=== PATIENT | female | born 1965 | race Caucasian/White ===

== ENCOUNTER → 2016-06-14 | Outpatient (CLI) | payer OTHER ==
[~2016-06-14] MED LIST: ASCA500 PO; CEPH-571 PO; CEPH500C2 PO; CHOLTAB3 PO; CLON1TAB3 PO; FERR1TAB23 PO; FLUO20CA20 PO; FLUO40CA8 PO; FLX/5 PO; GABA-113 PO; IBUP-1050 PO; IRON INFUSION IV; LAMO100T16 PO; LEVO25TA5 PO; LPT10 PO; MULT-506 PO; OXYC-609 PO; PRAZ1CAP10 PO; PROP20TA4 PO; PRT/20 PO; RISP0.258 PO; SULF800T23 PO; ZOLP10TA6 PO
--- NOTE | 2016-06-14 18:52 | DIAGNOSTIC IMAGING REPORT ---
BONE SCAN 3 PHASE LIMITED HISTORY: LEFT KNEE PAIN , S/P TKA 2013 TECHNIQUE: Immediately and 3 hours following the intravenous administration of 26 mCi of technetium 99 M MDP, 3 phase bone scan of the knees was performed. COMPARISON STUDY: Bone scan 07/17/2015. Bilateral knee radiograph 11/16/2014. FINDINGS: No abnormal retention uptake within the knees on the flow sequences. Focal mild radiotracer uptake within the medial compartment of the right knee consistent with degenerative change. There is also persistent radiotracer uptake at the left tibial periprosthetic location on the blood pool and delayed sequences. This remains unchanged. IMPRESSION: No change in the radiotracer uptake adjacent to the tibial component of the left knee compared to the 07/17/2015 examination. This raises the possibility of loosening. Electronically signed by: Brandon Powers M.D. 06/14/2016 6:50 PM Dictated Date/Time: 06/14/2016 6:46 PM
== END | disposition home or self-care (01) ==
LOC: C.NUCL 14:21
PROVIDERS: ATTEND Orthopaedic Surgery
DX: T84.84XA Pain due to internal orthopedic prosthetic devices, implants and grafts, initial encounter (principal); Z96.652 Presence of left artificial knee joint; Y83.1 Surgical operation with implant of artificial internal device as the cause of abnormal reaction of the patient, or of later complication, without mention of misadventure at the time of the procedure

== ENCOUNTER 2016-11-20 23:28 | Emergency (ER) | payer OTHER ==
[~2016-11-20] VITALS: Ht 162.6 cm; Wt 91.3 kg
[~2016-11-20 23:28] MED LIST changes: -CEPH-571 PO; -CEPH500C2 PO; -FERR1TAB23 PO; -FLUO20CA20 PO; -FLX/5 PO; -IRON INFUSION IV; -LAMO100T16 PO; -LEVO25TA5 PO; -LPT10 PO; -OXYC-609 PO; -PRAZ1CAP10 PO; -PROP20TA4 PO; -RISP0.258 PO; -SULF800T23 PO
[2016-11-20 23:34] VITALS: TEMP 36.8; Ht 162.6 cm; Wt 91.3 kg
[2016-11-20] MEDS ORDERED: SODIUM CHLORIDE 0.9% 1000ML 1,000 ML IV STA (23:35)
[2016-11-20] MEDS ORDERED: CEFAZOLIN SOD 1000MG/55 ML D5W IV STA (23:35)
[2016-11-20] MEDS ORDERED: XYLOCAINE 1%/SOD BICARB 20 ML VIAL INFIL ONE (23:45)
[2016-11-20] MEDS ORDERED: DIPHTHERIA/TETANUS/PERTUSSIS 0.5 ML SYR/VIAL IM. ONE (23:45)
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
[2016-11-21] MEDS ORDERED: LEVO25TA5 PO (00:04)
[2016-11-21] MEDS ORDERED: LPT10 PO (00:04)
[2016-11-21] MEDS ORDERED: OXYC-609 PO (00:06)
[2016-11-21] MEDS ORDERED: FLX/5 PO (00:06)
[2016-11-21 00:07] LABS: BASO % 0.5 %; BASO ABS # 0.04 K/uL (0-0.2); COMPLETE YES; EOS % 1.1 %; HEMATOCRIT 39.4 % (37-47); IG% 0.3 %; LYMPH % 31.9 %; LYMPH ABS # 2.53 K/uL (1.2-3.4); MEAN CELL VOLUME 82.3 fL (80-100); MEAN CORPUSCULAR HEMOGLOBIN 28.8 pg (25-34); MEAN PLATELET VOLUME 10.1 fL (7.4-10.4); MONO % 7.3 %; NEUT % 58.9 %; PLATELET COUNT 308 K/uL (130-400); RED BLOOD COUNT 4.79 M/uL (4.2-5.4); WHITE BLOOD COUNT 7.92 K/uL (4.8-10.8)
[2016-11-21] MEDS ORDERED: IRON INFUSION IV (00:07)
[2016-11-21 00:17] LABS: PARTIAL THROMBOPLASTIN RATIO 0.9; PROTHROMBIN TIME (PATIENT) 10.3 SECONDS (9.0-12.0)
[2016-11-21 00:24] LABS: ALT/SGPT 29 U/L (12-78); AST/SGOT 14 U/L (15-37); BLOOD UREA NITROGEN 10 mg/dl (7-18); BUN/CREATININE RATIO 10.9 (10-20); CALCIUM 8.3 mg/dl (8.5-10.1); CARBON DIOXIDE 21 mmol/L (21-32); CHLORIDE 111 mmol/L (98-107); CREATININE 0.92 mg/dl (0.60-1.20); GLUCOSE 86 mg/dl (70-99); POTASSIUM 3.8 mmol/L (3.5-5.1); SODIUM 143 mmol/L (136-145)
[2016-11-21 00:27] LABS: ALKALINE PHOSPHATASE 53 U/L (45-117)
[2016-11-21] MEDS ORDERED: CEPHALEXIN 500MG HOME PACK 1 EA BTL PO ONE (00:30)
[2016-11-21] MEDS ORDERED: OXYCODONE IR HOME PACK PO ONE (00:30)
[2016-11-21] MEDS ORDERED: CEPH500C2 PO (00:33)
[2016-11-21] MEDS ORDERED: OXYCODONE HCL IR 5 MG TAB (IMMEDIATE RELEASE) PO STA (00:33)
[2016-11-21 00:49] LABS: ACETAMINOPHEN < 2 ug/ml (10-30)
[2016-11-21 00:50] LABS: PREG INTERNAL NEGATIVE QC NEG CLEAR BACKGROUND; PREG INTERNAL POSITIVE QC POS CONTROL LINE
[2016-11-21 01:01] VITALS: BP 119/91; PULSE 88; O2SAT 100
== END 2016-11-21 01:06 | disposition home or self-care (01) ==
LOC: EDBD 23:28 → C.EDB 23:29
DX: S51.812A Laceration without foreign body of left forearm, initial encounter (principal); S66.822A Laceration of other specified muscles, fascia and tendons at wrist and hand level, left hand, initial encounter; W45.8XXA Other foreign body or object entering through skin, initial encounter; Y92.003 Bedroom of unspecified non-institutional (private) residence as the place of occurrence of the external cause; Y93.89 Activity, other specified; D64.9 Anemia, unspecified; M79.7 Fibromyalgia; Z87.891 Personal history of nicotine dependence; Z79.899 Other long term (current) drug therapy; Z23 Encounter for immunization

== ENCOUNTER → 2016-11-23 | Outpatient (CLI) | payer OTHER ==
[~2016-11-23] MED LIST changes: -ASCA500 PO; +CEPH-571 PO; +CEPH500C2 PO; -CHOLTAB3 PO; +FERR1TAB23 PO; +FLUO20CA20 PO; +FLX/5 PO; -IBUP-1050 PO; +IRON INFUSION IV; +LAMO100T16 PO; +LEVO25TA5 PO; +LPT10 PO; +OXYC-609 PO; +PRAZ1CAP10 PO; +PROP20TA4 PO; -PRT/20 PO; +RISP0.258 PO; +SULF800T23 PO; -ZOLP10TA6 PO
== END | disposition home or self-care (01) ==
LOC: C.CPL 13:53
PROVIDERS: ATTEND Orthopaedic Surgery
DX: S51.812A Laceration without foreign body of left forearm, initial encounter (principal); X58.XXXA Exposure to other specified factors, initial encounter

== ENCOUNTER 2016-12-02 15:08 | Inpatient (IN) | payer OTHER ==
[~2016-12-02] VITALS: Ht 160 cm; Wt 90.9 kg
[~2016-12-02 15:08] MED LIST changes: -CEPH-571 PO; -FERR1TAB23 PO; -FLUO20CA20 PO; -GABA-113 PO; -LAMO100T16 PO; -PRAZ1CAP10 PO; -PROP20TA4 PO; -RISP0.258 PO; -SULF800T23 PO
[2016-12-02] MEDS ORDERED: CEPH-571 PO (15:47)
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
[2016-12-02 17:11] LABS: BASO % 0.4 %; BASO ABS # 0.03 K/uL (0-0.2); COMPLETE YES; EOS % 1.2 %; HEMATOCRIT 37.4 % (37-47); IG% 0.2 %; LYMPH % 22.1 %; MEAN CELL VOLUME 86.4 fL (80-100); MEAN CORPUSCULAR HEMOGLOBIN 28.6 pg (25-34); MEAN CORPUSCULAR HGB CONC 33.2 g/dl (32-36); MONO % 6.5 %; NEUT % 69.6 %; PLATELET COUNT 342 K/uL (130-400); RED BLOOD COUNT 4.33 M/uL (4.2-5.4); WHITE BLOOD COUNT 8.14 K/uL (4.8-10.8)
[2016-12-02 17:32] LABS: ALT/SGPT 33 U/L (12-78); AST/SGOT 31 U/L (15-37); BLOOD UREA NITROGEN 7 mg/dl (7-18); BUN/CREATININE RATIO 7.6 (10-20); CALCIUM 9.3 mg/dl (8.5-10.1); CARBON DIOXIDE 30 mmol/L (21-32); CHLORIDE 104 mmol/L (98-107); CREATININE 0.97 mg/dl (0.60-1.20); GLUCOSE 87 mg/dl (70-99); POTASSIUM 3.9 mmol/L (3.5-5.1); SODIUM 140 mmol/L (136-145)
[2016-12-02 17:40] LABS: ACETAMINOPHEN < 2 ug/ml (10-30)
[2016-12-02 17:43] LABS: ALKALINE PHOSPHATASE 54 U/L (45-117)
[2016-12-02 18:06] LABS: URINE APPEARANCE CLEAR (CLEAR); URINE BILIRUBIN NEG (NEG); URINE COLOR YELLOW; URINE NITRITE NEG (NEG); URINE SPECIFIC GRAVITY 1.022 (1.000-1.030); UROBILINOGEN NEG (NEG); ZZUR CULT IF INDIC CLEAN CATCH NO
[2016-12-02 18:16] LABS: MANUAL MICROSCOPIC REQUIRED? NO; REVIEW REQ? NO
[2016-12-02] MEDS ORDERED: CLON1TAB3 PO ×2 (18:16)
[2016-12-02 18:46] LABS: BENZODIAZEPINE, URINE NEG (NEG); COCAINE,URINE NEG (NEG); PHENCYCLIDINE, URINE NEG (NEG)
[2016-12-02] MEDS ORDERED: SULFAMETHOXAZOLE/TRIMETHOPRIM DS 800/160MG TAB PO STA (19:10)
[2016-12-02] MEDS ORDERED: NURSING VERBAL MED ORDER ONE ×2 (20:45→23:15)
[2016-12-02 20:47] VITALS: O2SAT 96
[2016-12-02] MEDS ORDERED: ALUMINUM/MAGNESIUM SUSP 30 ML UDC PO PRN (21:00)
[2016-12-02] MEDS ORDERED: ACETAMINOPHEN 325 MG TAB PO PRN (21:00)
[2016-12-02] MEDS ORDERED: hydrOXYzine HCL 25 MG TAB PO PRN ×2 (21:00)
[2016-12-02] MEDS ORDERED: SODIUM CHLORIDE 0.65% NA SOLN 45 ML (OCEAN) PRN (21:00)
[2016-12-02] MEDS ORDERED: MAGNESIUM HYDROXIDE SUSP 30 ML UDC PO PRN (21:00)
[2016-12-02] MEDS ORDERED: BISMUTH SUBSALICYLATE PER ML OMNICELL CHARGE PO PRN (21:00)
[2016-12-02] MEDS: ATORVASTATIN 10 MG TAB PO SCH ×2 (21:36→21:43)
[2016-12-02] MEDS: CLONAZEPAM 1 MG TAB PO SCH ×2 (21:36→21:43)
[2016-12-02] MEDS: OXYCODONE HCL IR 5 MG TAB (IMMEDIATE RELEASE) PO PRN (21:39)
[2016-12-02] MEDS: CEPHALEXIN MONOHYDRATE 500 MG CAP PO SCH (22:15)
[2016-12-02 23:30] VITALS: BP 131/84; PULSE 78; TEMP 36.5; BMI 35.5
[2016-12-03 06:36] VITALS: BP_SYST 107; BP_SYST 109; BP_DIAS 65; BP_DIAS 74; PULSE 73; TEMP 37
[2016-12-03 06:41] VITALS: Ht 160 cm; Wt 90.9 kg
[2016-12-03] MEDS: LEVOTHYROXINE 75 MCG TAB PO SCH (08:43)
[2016-12-03] MEDS: CEPHALEXIN MONOHYDRATE 500 MG CAP PO SCH ×4 (08:44→22:00)
[2016-12-03] MEDS: MULTIVITAMIN TAB PO SCH (08:44)
[2016-12-03] MEDS: CYCLOBENZAPRINE HCL 5 MG TAB PO PRN ×2 (08:50→22:20)
[2016-12-03] MEDS: OXYCODONE HCL IR 5 MG TAB (IMMEDIATE RELEASE) PO PRN ×3 (08:57→22:02)
[2016-12-03] MEDS ORDERED: CLONAZEPAM 0.5 MG TAB PO SCH (09:00)
[2016-12-03] MEDS ORDERED: FLUOXETINE HCL 20 MG CAP PO SCH (09:00)
[2016-12-03] MEDS ORDERED: PROP20TA4 PO (10:17)
[2016-12-03] MEDS ORDERED: RISP0.258 PO (10:18)
[2016-12-03] MEDS ORDERED: LAMO100T16 PO (10:19)
[2016-12-03] MEDS ORDERED: PRAZ1CAP10 PO (10:20)
[2016-12-03] MEDS ORDERED: GABA-113 PO (10:21)
[2016-12-03] MEDS ORDERED: FERR1TAB23 PO (10:22)
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
[2016-12-03 12:50] VITALS: BP 104/66; PULSE 55
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
[2016-12-03] MEDS: GABAPENTIN 300 MG CAP PO SCH ×2 (14:12→22:00)
[2016-12-03] MEDS ORDERED: NURSING VERBAL MED ORDER ONE (20:30)
[2016-12-03] MEDS ORDERED: HALOPERIDOL LACTATE 5 MG/ML 1 ML VIAL IM PRN (20:45)
--- NOTE | 2016-12-03 21:18 | Progress Note ---
Progress Note Date of Service Dec 03, 2016. Progress Note Visit consult on Yoselin Bowles a 51-year-old female seen at the request of Dr. Jeannette spence regarding a left dorsal forearm laceration. Currently the patient sustained a laceration over dorsal left forearm on November 20. She was seen in the [facility] ER. She was seen and evaluated with exploration of the wound and loose closure. She was then referred to our clinic at . She subsequently had exploration and repair of her left forearm laceration. She is placed in a dorsal splint. She was having worsening agitation and difficulty with her family members and was admitted to [address] [place] [address] psychiatric unit. Orthopedics was consulted to assess left forearm. Reportedly the patient had become agitated and removed her splint and thrown it while here during this admission. Patient was also reportedly manipulating her dorsal incision and potentially trying to remove some of her sutures. When questioned regarding her behavior the patient admitted to removing her splint and manipulating her sutures. Past medical and surgical history: Major depressive disorder, GERD, dorsal forearm laceration left Allergies no known drug allergies Medications: Reviewed and in the chart Social history: Tobacco use, alcohol use, no reported drug use. . Lives with family. Physical exam: Patient was examined while sitting in the activity room the psychiatric unit. Patient was visibly upset and easily agitated. I introduced myself and explained my purpose of examination to the patient. She did consent to my examination. Left dorsal forearm splint had been removed by the patient. Her on the wrapping was disheveled. The dorsal sutured laceration was exposed to air. The wound edges were well coapted. Obvious erythema surrounding the wound edges with mild excoriations consistent with wound manipulation. No purulence or discharge is noted. No proximal streaking or redness was noted. No phlebitis or ropiness was palpated. She had mild discomfort with gentle passive range of motion of the thumb and digits. She had moderate weakness with extension of the thumb and second digit. Radial pulse 2 out of 4. Skin warm, dry, intact. No rashes or other lesions beside the well coapted laceration. Impression: Left forearm laceration status post repair Recommendation: After discussion with the patient, she agreed to reapplying her splint herself. She refused to have nursing staff reapply the splint. I offered to reapply the splint she also refused. Patient stated that she wanted to be released to home. I explained that she could easily reopen her wound and had become infected if she continued to manipulate the wound. She agreed to obtain the splint in her own best interest. Patient is to maintain the splint and follow-up in clinic as previously arranged. Ice and elevation of the left forearm. Keep splint intact clean and dry. Thank you for the opportunity consult care of this patient. Sincerely, Vishal Aldana D.O.
--- NOTE | 2016-12-03 21:40 | Psychiatric Progress Notes ---
Psychiatric Progress Note Date of Service Dec 03, 2016. Notes case reviewed with correctional facility nurse psychiatrist Dr. Soto as I was examining physician for the day and reverse unit operator fisherman. On assessment earlier today she did not report pain and was ambulating without difficulty. Neurontin (which she reportedly was not taking at home but was prescribed) was restarted to address neuropathy. At the time of her meeting with MD she had represented generally using Oxycodone 10 mg 2-3 times a day, "sometimes not all". TID was determined to be most appropriate dosing pending additional documentation of indication for opiate as not generally prescribed for fibromyalgia. call or contact centre manager MD available for additional dosing if more objective evidence of pain or for rx of withdrawal. Patient had rescinded PILAR for who would have been able to locate/count missing pills that she reports to have at home. Staff attempts to follow doctor 's orders outlining appropriate limits on use of controlled substances have been met with grossly inappropriate behavior as documented in nursing notes. Ortho had been consulted early in day (prior to removal of splint by patient in anger) to address infection and sutures. Ortho consult reviewed this pm, no additional med recs. Patient submitted 72 hour notice to withdraw from treatment. She is not stable for discharge at this time and will be reassessed by Dr. oSto in the am who will also encourage family involvement in safety planning prior to discharge.
[2016-12-03] MEDS ORDERED: FERROUS SULFATE 325 MG TAB PO SCH (22:00)
[2016-12-03] MEDS: ATORVASTATIN 10 MG TAB PO SCH (22:00)
[2016-12-03] MEDS ORDERED: PROPRANOLOL HCL 20 MG TAB PO SCH (22:00)
[2016-12-03] MEDS ORDERED: RISPERIDONE 0.5 MG TAB PO SCH (22:00)
[2016-12-03] MEDS ORDERED: PRAZOSIN HCL 1 MG CAP PO SCH (22:00)
[2016-12-03] MEDS: CLONAZEPAM 0.5 MG TAB PO PRN (22:18)
[2016-12-03] MEDS: HALOPERIDOL 5 MG TAB PO PRN (22:18)
[2016-12-04 06:36] VITALS: BP_SYST 109; BP_SYST 119; BP_DIAS 64; BP_DIAS 83; PULSE 71; PULSE 75; TEMP 37
--- NOTE | 2016-12-04 07:55 | Psychiatric Progress Notes ---
Progress Note Date of Service Dec 04, 2016. Interval History Yoselin Bowles is a 51-year-old female who currently lives in [place] with her , has a history of mood disorder NOS, chronic opiate and benzodiazepine use, and was admitted on a 201 voluntary commitment after she presented to the ED, having recently been seen in ED after self inflicted lac to her left arm requiring tendon repair surgery. She submitted a 72 hour notice to withdraw from treatment. Chief Complaint "I'm tired of being lied to and crap". Subjective Patient was seen & assessed interval progress reviewed with nursing. Staff report she has been agitated and grossly inappropriate since admission, yelling , threatening and throwing things. She removed the splint from her arm laceration and threw it, used the TV remote to hit the nurses' station window, and has been yelling and swearing at staff. Security had to be called to the unit multiple times. She was seen by orthopedics (although she initially refused to see Dr. Aldana, but later agreed), who has no further medication recommendations. She had signed an PILAR for her on admission, but then rescinded it and would not allow staff to contact him. She later signed another one. She refused her HS meds (gabapentin, Keflex, Lipitor). She requested a prn for sleep and accepted Haldol 5mg. She told staff she wanted meds that would "fuck me up, cause that's what I want. That's what I'm here for anyway, drugs!" Staff met with her one on one last night and she had many complaints (that staff went through her purse and counted her pills). She admitted she has issues with "rage" and that she "flipped out" and cannot control her behavior. She has received multiples prns since admission yesterday: clonazepam, hydroxyzine, haloperidol, cyclobenzaprine, and oxycodone. Her VS have been normal and stable. She told staff this morning that she will not take any medications except for Roxicodone, Flexeril, and Klonopin. On assessment today , the patient was seen in her room, where she was sitting in the darkened room drinking soda. She refused to answer questions about why she was here in the hospital, repeatedly launching into angry tirades, with many complaints about her medications (that staff went through her medications in her purse on admission), frequently swearing and raising her voice. Numerous attempts were made to redirect her away from her complaints and all of the things that she says she is not here to receive treatment for, and to engage her in a discussion of what she is here to receive treatment for. After many attempts, she did say that she was here "for mental stuff, anger." She then immediately turn to topic back to her numerous complaints and stated she would not discuss this further and told her demands for more pain medication and more benzodiazepines were met. She continued to escalate, yelling and swearing at this physician, and when asked to please calm down and then have a respectful discussion, said "get the hell out." She continued to yell angrily as this physician left the room. Sleep Information Total Hours of Sleep: 5.50 Meal Information Percent of Breakfast Consumed: 25 Percent of Lunch Consumed: 50 Percent of Dinner Consumed: 100 Mental Status Exam During interview pt is: alert and oriented, uncooperative, other (angry, swearing, grossly inappropriate behavior) Appearance: appropriately dressed, disheveled Eye contact is: fair Motor behavior is: no abnormal motor movements Speech: loud (angry tone, frequent swearing and derogatory statements about staff) Affect: irritable Mood is: irritable, angry Thought process: perseveration (on wanting more controlled substances) Thought content: reality based without delusions Intelligence estimated to be: consistent with level of education Insight: limited Judgement: limited Patient refused to engage in the interview or answer questions about suicidality , homicidality, or psychosis Impression 51 yo female with a history of depression, PTSD, and chronic benzo and oxycodone use who presented with irritability, impulsive outbursts, and recent self harm requiring surgical intervention (cut her arm deep enough to sever a tendon and require surgical repair). Although she denies SI, she is at significant risk of self-harm given recent behaviors and access to controlled substances. She was resistant to attempts to safety plan. Symptoms are consistent with her previous diagnoses of depression and PTSD though differential includes substance induced mood disorder, bipolar II disorder and borderline personality disorder. Plan (1) Depression on admission: The patient is admitted to [facility] ([facility] unit) on q 15 min checks (behavioral with suicide precautions) for safety. The patient will participate in group, recreational and milieu therapies and will be offered additional individual and family sessions as clinically appropriate. As no current evidence of ky and ongoing low mood/anxiety recommend titration of Prozac to 60 mg, previously failed SNRI. Reviewed that an adjunctive mood stabilizer would be recommended given predominantly irritable presentation and previously recommended by outpatient provider. Reviewed that Seroquel may assist sleep and could be used as prn for anxiety which are patient's main complaints. She declines and remains focussed on Klonopin, angry that med changes are being recommended. LM for Dr. 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 12/04 - Reviewed outpatient psychiatric records. Patient diagnosed with recurrent depression, severe without psychosis, URIAH, and PTSD. At her last appointment , she was focused on her Klonopin and refused to discuss anything else, wanting a higher dose, and refusing to follow taper instructions. She claimed she never took the opiates prescribed for her knee pain, and said she'd turned the prescription in to her pharmacy. She was angry and accusatory. She had quit going to therapy saying she could not afford it. She canceled her next appointment 11/25, then no showed for her 12/02 appointment. She does have a therapy appointment scheduled with Juanis Carr on 12/27/16 at 2pm. She is supposed to be taking risperidone 0.25mg qhs, prazosin 1-2mg qhs, fluoxetine 40mg qam, propranolol 20mg 1-2 times daily, lamotrigine 100mg qhs, and clonazepam 0.5mg qam and 2mg qhs (tapering by reducing by 0.5mg q 2 months). She admitted on admission that she was not taking any of her medications other than clonazepam. - Continue fluoxetine which was increased to 60mg daily on admission. Continue gabapentin 300mg tid for mood, anxiety and would also cover possible benzo withdrawal (which she refused last night). She is now refusing both of these, and states she will refuse all medications except for Flexeril, Klonopin, and oxycodone. - Suspect Noti II component, with borderline and/or antisocial characteristics. (2) PTSD (post-traumatic stress disorder) patient reports mainly intrussive thoughts due to rumination rather than traumatic reexperiencing, occasional nightmares and apparently doesn't desire trials of propranolol or prazosin. 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 Klonopin was ordered as prescribed on admission to prevent withdrawal. Will switch to prn dosing which more closely matches home schedule at a lower total daily dose of 2 mg. PDMP queried and report printed for chart. 12/04 - Agree with tapering off clonazepam due to many risks associated with nuclear security officer use and concurrent use of opiate pain meds. She is clearly drug seeking, with grossly inappropriate and manipulative/threatening behavior here. Dose has been decreased per outpatient plan by 0.5mg daily. Will need f/u with Dr. Stein, and Dr. Beck left a message with him to coordinate care. Will need to confirm home med pill count as there is concern for abuse (UDS negative for benzos and her bottle filled on 11/27/16 for a 24 day supply was empty on admission); staff to ask to bring in remaining pills. (4) Chronic prescription opiate use PILAR for [place] [facility] PDMP queried monitor for withdrawal if has been using at doses higher than prescribed--would initiate clonidine protocol. No evidence at this time. 12/04 - Reviewed records and PDMP - - filled oxycodone 10mg #120 on 11/30/16 from [facility] in [place]. Will need to coordinate care due to concerns for risk of self harm, possible misuse of medications, drug-drug interactions, etc. (5) Laceration continue antibiotic dual therapy for 10 days as recommended by ED consult orthopedics as missed appt today for surgical f/u taper wrap instead of metal clips 12/04 - Appreciate ortho recs. Continue splint and keep wound clean and dry. She had been manipulating the wound yesterday, and need to continue to monitor her for self inflicted injury and infection. F/u in their outpatient clinic. Septra DS was not started on admission, but was ordered today to complete a 7 day course. (6) Chronic pain Get records from [facility], as indication for chronic opiates unclear, and risk of abuse/misuse/drug-drug interactions and self injury are high. Discharge / Aftercare Planning Primary Care Physician: Name: Preston Gutierrez Therapist: Name: Fozia Wahl @ [facility] Date of Appointment: Dec 27, 2016 Visit Code E&M Code: 40145 Inventory Assets Strengths: long standing relationship with an outpatient provider, supportive family Risk Factors Assessment : Yes Health problems: Yes Mental Health Diagnoses: Yes Substance use disorders: Yes (though patient denies, combo of benzo and opiate is concerning) Previous attempt: Yes Family history of suicide: No Previous psychiatric stay: No Protective Factors Assessment : Yes Employed: No Data Vital Signs Last 24 Hrs: Date Time Temp Pulse Resp B/P (MAP) Pulse Ox O2 Delivery O2 Flow Rate FiO2 12/04/16 06:36 37.0 71 16 109/64 75 119/83 Meds Administered Last 24 Hrs: Meds Administered (Past 24Hrs) Medications (Trade) Dose Ordered Sig/Oxana Route Start Time Stop Time Status Last Admin Dose Admin Trimethoprim/ Sulfamethoxazole (Septra Ds 800/ 160MG Tab) 1 tab NOW STAT PO 12/02/16 19:10 12/02/16 19:11 DC 12/02/16 19:29 1 TAB Hydroxyzine HCl (Vistaril Tab) 50 mg HSZ PRN PO 12/02/16 21:00 01/01/17 20:59 12/03/16 00:18 50 MG Atorvastatin Calcium (Lipitor Tab) 10 mg HS PO 12/02/16 21:00 01/01/17 20:59 12/02/16 21:36 10 MG Clonazepam (Klonopin Tab) 0.5 mg QAM PO 12/03/16 09:00 12/03/16 14:01 DC 12/03/16 08:45 0.5 MG Clonazepam (Klonopin Tab) 2 mg HS PO 12/02/16 21:00 12/03/16 14:01 DC 12/02/16 21:36 2 MG Cyclobenzaprine HCl (Flexeril Tab) 5 mg QID PRN PO 12/02/16 21:00 01/01/17 20:59 12/03/16 22:20 5 MG Fluoxetine HCl (Prozac Cap) 40 mg QAM PO 12/03/16 09:00 12/03/16 14:01 DC 12/03/16 08:44 40 MG Levothyroxine Sodium (Synthroid Tab) 37.5 mcg DAILYBB PO 12/03/16 07:00 01/02/17 06:59 12/03/16 08:43 37.5 MCG Multivitamins (Multivitamin Tab) 1 tab QAM PO 12/03/16 09:00 01/02/17 08:59 12/03/16 08:44 1 TAB Oxycodone HCl (Roxicodone Immediate Rel Tab) 10 mg QID PRN PO 12/02/16 21:00 12/03/16 14:01 DC 12/03/16 08:57 10 MG Cephalexin Monohydrate (Keflex Cap) 500 mg QID PO 12/02/16 22:00 12/12/16 21:59 12/03/16 17:06 500 MG Gabapentin (Neurontin Cap) 300 mg TID PO 12/03/16 14:00 01/02/17 13:59 12/03/16 14:12 300 MG Clonazepam (Klonopin Tab) 0.5 mg Q6 PRN PO 12/03/16 18:00 01/02/17 08:59 12/03/16 22:18 0.5 MG Oxycodone HCl (Roxicodone Immediate Rel Tab) 10 mg TID PRN PO 12/03/16 14:00 12/16/16 20:59 12/03/16 22:02 10 MG Haloperidol (Haldol Tab) 5 mg Q4H PRN PO 12/03/16 20:45 01/02/17 20:44 12/03/16 22:18 5 MG Problem Qualifiers (1) Depression: Depression Type: major depressive disorder Major depression recurrence: recurrent Active/Remission status: currently active Major depression episode severity: severe Psychotic features: without psychotic features Qualified Codes: F33.2 - Major depressive disorder, recurrent severe without psychotic features
[2016-12-04] MEDS: OXYCODONE HCL IR 5 MG TAB (IMMEDIATE RELEASE) PO PRN ×3 (10:55→22:48)
[2016-12-04] MEDS: MULTIVITAMIN TAB PO SCH (10:58)
[2016-12-04] MEDS: LEVOTHYROXINE 75 MCG TAB PO SCH (10:58)
[2016-12-04] MEDS: CEPHALEXIN MONOHYDRATE 500 MG CAP PO SCH ×4 (10:58→21:50)
[2016-12-04] MEDS: GABAPENTIN 300 MG CAP PO SCH ×3 (10:59→21:50)
[2016-12-04] MEDS: FLUOXETINE HCL 20 MG CAP PO SCH (10:59)
[2016-12-04] MEDS: CLONAZEPAM 0.5 MG TAB PO PRN ×2 (11:01→18:39)
[2016-12-04] MEDS ORDERED: SULF800T23 PO (11:03)
[2016-12-04] MEDS ORDERED: SULFAMETHOXAZOLE/TRIMETHOPRIM DS 800/160MG TAB PO ONE (11:05)
[2016-12-04] MEDS: CYCLOBENZAPRINE HCL 5 MG TAB PO PRN ×2 (11:47→22:49)
[2016-12-04] MEDS: ATORVASTATIN 10 MG TAB PO SCH (21:50)
[2016-12-04] MEDS: SULFAMETHOXAZOLE/TRIMETHOPRIM DS 800/160MG TAB PO SCH (21:51)
[2016-12-04] MEDS: HALOPERIDOL 5 MG TAB PO PRN (22:49)
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
[2016-12-05] MEDS: CEPHALEXIN MONOHYDRATE 500 MG CAP PO SCH ×4 (09:14→21:32)
[2016-12-05] MEDS: CLONAZEPAM 0.5 MG TAB PO PRN ×3 (09:14→23:00)
[2016-12-05] MEDS: FLUOXETINE HCL 20 MG CAP PO SCH (09:15)
[2016-12-05] MEDS: SULFAMETHOXAZOLE/TRIMETHOPRIM DS 800/160MG TAB PO SCH ×2 (09:15→21:30)
[2016-12-05] MEDS: GABAPENTIN 300 MG CAP PO SCH ×3 (09:15→21:31)
[2016-12-05] MEDS: MULTIVITAMIN TAB PO SCH (09:15)
[2016-12-05] MEDS: LEVOTHYROXINE 75 MCG TAB PO SCH (09:15)
[2016-12-05] MEDS: OXYCODONE HCL IR 5 MG TAB (IMMEDIATE RELEASE) PO PRN ×4 (09:16→23:02)
[2016-12-05 09:18] VITALS: BP 132/85; PULSE 86; TEMP 36.6
[2016-12-05] MEDS: CYCLOBENZAPRINE HCL 5 MG TAB PO PRN ×3 (10:41→23:03)
[2016-12-05] MEDS ORDERED: NURSING VERBAL MED ORDER ONE (20:30)
[2016-12-05] MEDS: BACITRACIN OINT 15 GM TUBE EXT PRN (21:30)
[2016-12-05] MEDS: ATORVASTATIN 10 MG TAB PO SCH (21:31)
[2016-12-05] MEDS: HALOPERIDOL 5 MG TAB PO PRN (23:00)
[2016-12-05 23:54] LABS: COD UR NEGATIVE NG/ML (CUTOFF=50); HYDROCOD UR NEGATIVE NG/ML (CUTOFF=50); HYDROMOR UR NEGATIVE NG/ML (CUTOFF=50); MORPHINE UR NEGATIVE NG/ML (CUTOFF=50); NORHYDROCODONE CONF UR NEGATIVE NG/ML (CUTOFF=50); OXYMORPH UR 2120 NG/ML (CUTOFF=50)
[2016-12-06 06:27] VITALS: BP_SYST 110; BP_SYST 125; BP_DIAS 71; BP_DIAS 85; PULSE 67; PULSE 79; TEMP 36.9
[2016-12-06] MEDS: LEVOTHYROXINE 75 MCG TAB PO SCH (08:39)
[2016-12-06] MEDS: MULTIVITAMIN TAB PO SCH (08:40)
[2016-12-06] MEDS: GABAPENTIN 300 MG CAP PO SCH ×3 (08:40→22:44)
[2016-12-06] MEDS: FLUOXETINE HCL 20 MG CAP PO SCH (08:40)
[2016-12-06] MEDS: SULFAMETHOXAZOLE/TRIMETHOPRIM DS 800/160MG TAB PO SCH ×2 (08:40→22:44)
[2016-12-06] MEDS: CEPHALEXIN MONOHYDRATE 500 MG CAP PO SCH ×4 (08:40→22:43)
[2016-12-06] MEDS: CYCLOBENZAPRINE HCL 5 MG TAB PO PRN ×4 (08:48→22:42)
[2016-12-06] MEDS: OXYCODONE HCL IR 5 MG TAB (IMMEDIATE RELEASE) PO PRN ×4 (08:49→23:52)
[2016-12-06] MEDS: CLONAZEPAM 0.5 MG TAB PO PRN ×3 (09:52→23:52)
--- NOTE | 2016-12-06 12:07 | Psychiatric Progress Notes ---
Progress Note Date of Service Dec 06, 2016. Interval History Yoselin Bowles is a 51-year-old female who currently lives in [place] with her , has a history of mood disorder NOS, chronic opiate and benzodiazepine use, and was admitted on a 201 voluntary commitment after she presented to the ED, having recently been seen in ED after self inflicted lac to her left arm requiring tendon repair surgery. She submitted a 72 hour notice to withdraw from treatment. Chief Complaint "Good, good". Subjective Patient was seen & assessed interval progress reviewed with Treatment Team. Staff report she has been going to groups and participating. She had a meeting with her this morning. She says it went well and they talked about safety issues (getting the guns secured, having her secure medications, and possibly involving her daughter as well). She also talked about her anger problems and is considering outpatient anger management. She is trying to "talk about the things that have been bottled up" while here, which she says have been helpful. She says she hasn't talked to anybody about these things in the past. She is going to commit to more frequent therapy, and is going to join the [facility] so she can use the pool for exercise. Mood is improved from admission, but she continues to be easily overwhelmed, although has been able to remain in better behavioral control since Sat. She denies SI and feels safe here. She denies opiate withdrawal symptoms. She admits that she has never really processed her anger issues with her therapist, and says there are "a lot of things I never talked to anyone about." She feels less apprehensive now about bringing up some of these topics. She decided to rescind her 72 hour notice and stay "for at least a couple more days, I really need the help." She says she "hates to be out of control, it's the worst thing ever, but at the time I can't stop it." She says she "takes it out on everyone around me, it's not fair." Sleep Information Total Hours of Sleep: 5.50 Meal Information Percent of Breakfast Consumed: 100 Percent of Lunch Consumed: 100 Percent of Dinner Consumed: 50 Mental Status Exam During interview pt is: alert and oriented, cooperative Appearance: appropriately dressed, appropriately groomed, other (Left arm in splint/bandage) Eye contact is: good Motor behavior is: steady gait & station, no abnormal motor movements Speech: normal in rate, rhythm & volume Affect: depressed, other (appropriate and reactive) Mood is: other ("getting better") Thought process: goal directed Thought content: reality based without delusions Suicidal thought are: denied Homicidal thoughts are: denied Hallucinations: denies auditory, denies visual Cognition: memory grossly intact, attention grossly intact, language grossly intact Intelligence estimated to be: consistent with level of education Insight: fair Judgement: fair Impression 51 yo female with a history of depression, PTSD, and chronic benzo and oxycodone use who presented with irritability, impulsive outbursts, and recent self harm requiring surgical intervention (cut her arm deep enough to sever a tendon and require surgical repair). Symptoms are consistent with her previous diagnoses of depression and PTSD though differential includes substance induced mood disorder, bipolar II disorder and borderline personality disorder. For the first two days after admission, she was uncooperative with assessments and refused to engage in treatment or take medication for her mood, anxiety, and irritability. She was angry and oppositional with staff, refused to involve her in treatment or allow staff to speak with him (rescinded all ROIs for family and outpatient providers). She refused to even discuss the symptoms and self injurious behavior that led to admission, and was focused only on pain medications. She remains at high risk for self harm if her risk factors are not addressed, so is not yet appropriate for discharge. She had submitted a 72 hour notice, but agreed to rescind it during her family meeting and engage in treatment so that we can address presenting symptoms with a plan including medications and therapy, ensure outpatient follow up, involve or other family to elicit their concerns about her safety at home and involve them in her discharge planning, and ensure she won't have access to large amounts of pills given the risk for OD. Would also need to coordinate care with her outpatient providers, specifically psychiatry and pain management, given concerns about her opiate and benzodiazepine use. She has been more calm and engaged in treatment since 12/05. She is also willing to take medications that have been prescribed for mood and irritability. Plan (1) Depression on admission: The patient is admitted to [facility] ([facility]) on q 15 min checks (behavioral with suicide precautions) for safety. The patient will participate in group, recreational and milieu therapies and will be offered additional individual and family sessions as clinically appropriate. As no current evidence of ky and ongoing low mood/anxiety recommend titration of Prozac to 60 mg, previously failed SNRI. Reviewed that an adjunctive mood stabilizer would be recommended given predominantly irritable presentation and previously recommended by outpatient provider. Reviewed that Seroquel may assist sleep and could be used as prn for anxiety which are patient's main complaints. She declines and remains focussed on Klonopin, angry that med changes are being recommended. LM for Dr. 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 12/04 - Reviewed outpatient psychiatric records. Patient diagnosed with recurrent depression, severe without psychosis, URIAH, and PTSD. At her last appointment , she was focused on her Klonopin and refused to discuss anything else, wanting a higher dose, and refusing to follow taper instructions. She claimed she never took the opiates prescribed for her knee pain, and said she'd turned the prescription in to her pharmacy. She was angry and accusatory. She had quit going to therapy saying she could not afford it. She canceled her next appointment 11/25, then no showed for her 12/02 appointment. She does have a therapy appointment scheduled with Juanis Carr on 12/27/16 at 2pm. She is supposed to be taking risperidone 0.25mg qhs, prazosin 1-2mg qhs, fluoxetine 40mg qam, propranolol 20mg 1-2 times daily, lamotrigine 100mg qhs, and clonazepam 0.5mg qam and 2mg qhs (tapering by reducing by 0.5mg q 2 months). She admitted on admission that she was not taking any of her medications other than clonazepam. - Continue fluoxetine which was increased to 60mg daily on admission. Continue gabapentin 300mg tid for mood, anxiety and would also cover possible benzo withdrawal (which she refused last night). She is now refusing both of these, and states she will refuse all medications except for Flexeril, Klonopin, and oxycodone. - Suspect [place] II component, with borderline and/or antisocial characteristics. 12/05 - Patient much more calm and cooperative today, willing to take fluoxetine and gabapentin to target mood, anxiety, and irritability, and willing to attend participate in groups and therapy. - Staff to arrange family meeting with for tomorrow. - Will need to coordinate care with outpatient psychiatric provider, Dr. Stein. Has therapy with Juanis Carr scheduled for later this month. (2) PTSD (post-traumatic stress disorder) patient reports mainly intrusive thoughts due to rumination rather than traumatic reexperiencing, occasional nightmares and apparently doesn't desire trials of propranolol or prazosin. (3) long-term prescription benzodiazepine use reviewed that I would recommend Klonopin taper during hospitalization and confirming pill counts. Klonopin was ordered as prescribed on admission to prevent withdrawal. Will switch to prn dosing which more closely matches home schedule at a lower total daily dose of 2 mg. PDMP queried and report printed for chart. 12/04 - Agree with tapering off clonazepam due to many risks associated with chcf use and concurrent use of opiate pain meds. She is clearly drug seeking, with grossly inappropriate and manipulative/threatening behavior here. Dose has been decreased per outpatient plan by 0.5mg daily. Will need f/u with Dr. Stein, and Dr. Beck left a message with him to coordinate care. Will need to confirm home med pill count as there is concern for abuse (UDS negative for benzos and her bottle filled on 11/27/16 for a 24 day supply was empty on admission); staff to ask to bring in remaining pills. 12/05 - Continue clonazepam 0.5 mg 4 times a day when necessary. Patient has only been getting 2 doses a day. She will need to continue tapering off this medication as an outpatient. - Although the patient's prescription bottle was empty on admission, she claims that she has the remainder of her pills at home. She had just filled the prescription 2 days prior to admission. Staff to ask to bring in medications so that it can be counted for safety prior to discharge. (4) Chronic prescription opiate use PILAR for [place] [facility] PDMP queried monitor for withdrawal if has been using at doses higher than prescribed--would initiate clonidine protocol. No evidence at this time. 12/04 - Reviewed hospital records and PDMP - - filled oxycodone 10mg #120 on from [facility] in [place]. Will need to coordinate care due to concerns for risk of self harm, possible misuse of medications, drug-drug interactions, etc. 12/05 - records have not yet been received from the pain clinic, but patient is reporting poorly controlled pain, and requesting her medication be increased to 4 times a day which she states is her outpatient prescription. Agreed to increase to 4 times a day when necessary. Staff to request to bring in remainder of medications as above. We'll need to coordinate care with outpatient pain clinic tomorrow. (5) Laceration continue antibiotic dual therapy for 10 days as recommended by ED consult orthopedics as missed appt today for surgical f/u taper wrap instead of metal clips 12/04 - Appreciate ortho recs. Continue splint and keep wound clean and dry. She had been manipulating the wound yesterday, and need to continue to monitor her for self inflicted injury and infection. F/u in their outpatient clinic. Septra DS was not started on admission, but was ordered today to complete a 7 day course. 12/06 - Patient questioning when sutures will be removed - will contact Dr. Aldana. Continue bacitracin as needed for dryness/itching around laceration. Continue use of splint. Complete antibiotics. (6) Chronic pain Get records from [facility], as indication for chronic opiates unclear, and risk of abuse/misuse/drug-drug interactions and self injury are high. 7 - discussed nonpharmacological techniques for managing chronic pain, including gentle exercise (hydrotherapy as she has a Jacuzzi tub at home, swimming, gentle stretching, yoga, etc.), use of nonnarcotic pain medications, ensuring adequate treatment of mental health issues, working on managing stress , and ensuring good diet and sleep. Discharge / Aftercare Planning Primary Care Physician: Name: Preston Gutierrez Psychiatrist: Name: Dr Stein Phone Number: Date of Appointment: Dec 15, 2016 Time of Appointment: 4:40pm Therapist: Name: Fozia Wahl @ [facility] Date of Appointment: Dec 27, 2016 Time of Appointment: 2:00pm Visit Code E&M Code: 08247 Inventory Assets Strengths: long standing relationship with an outpatient provider, supportive family Risk Factors Assessment : Yes Health problems: Yes Mental Health Diagnoses: Yes Substance use disorders: Yes (though patient denies, combo of benzo and opiate is concerning) Previous attempt: Yes Family history of suicide: No Previous psychiatric stay: No Protective Factors Assessment : Yes Employed: No Data Vital Signs Last 24 Hrs: Date Time Temp Pulse Resp B/P (MAP) Pulse Ox O2 Delivery O2 Flow Rate FiO2 12/06/16 06:27 36.9 79 16 110/71 67 125/85 Meds Administered Last 24 Hrs: Meds Administered (Past 24Hrs) Medications (Trade) Dose Ordered Sig/Oxana Route Start Time Stop Time Status Last Admin Dose Admin Trimethoprim/ Sulfamethoxazole (Septra Ds 800/ 160MG Tab) 1 tab BID PO 12/04/16 22:00 12/14/16 21:59 12/06/16 08:40 1 TAB Oxycodone HCl (Roxicodone Immediate Rel Tab) 10 mg QID PRN PO 12/05/16 12:00 12/16/16 20:59 12/06/16 08:49 10 MG Bacitracin (Bacitracin Oint) 1 appln TID PRN EXT 12/05/16 21:15 01/04/17 21:14 12/05/16 21:30 1 APPLN Problem Qualifiers (1) Depression: Depression Type: major depressive disorder Major depression recurrence: recurrent Active/Remission status: currently active Major depression episode severity: severe Psychotic features: without psychotic features Qualified Codes: F33.2 - Major depressive disorder, recurrent severe without psychotic features
[2016-12-06] MEDS: BACITRACIN OINT 15 GM TUBE EXT PRN (12:54)
[2016-12-06] MEDS: HALOPERIDOL 5 MG TAB PO PRN (22:43)
[2016-12-06] MEDS: ATORVASTATIN 10 MG TAB PO SCH (22:45)
[2016-12-07 06:48] VITALS: BP_SYST 111; BP_SYST 131; BP_DIAS 72; BP_DIAS 87; PULSE 70; PULSE 74; TEMP 36.7
[2016-12-07] MEDS: MULTIVITAMIN TAB PO SCH (08:02)
[2016-12-07] MEDS: CEPHALEXIN MONOHYDRATE 500 MG CAP PO SCH ×4 (08:02→22:31)
[2016-12-07] MEDS: LEVOTHYROXINE 75 MCG TAB PO SCH (08:02)
[2016-12-07] MEDS: SULFAMETHOXAZOLE/TRIMETHOPRIM DS 800/160MG TAB PO SCH ×2 (08:03→22:31)
[2016-12-07] MEDS: FLUOXETINE HCL 20 MG CAP PO SCH (08:03)
[2016-12-07] MEDS: GABAPENTIN 300 MG CAP PO SCH ×3 (08:03→22:31)
[2016-12-07] MEDS: OXYCODONE HCL IR 5 MG TAB (IMMEDIATE RELEASE) PO PRN ×3 (08:04→19:19)
[2016-12-07] MEDS: CLONAZEPAM 0.5 MG TAB PO PRN ×2 (11:30→19:18)
--- NOTE | 2016-12-07 11:55 | Psychiatric Progress Notes ---
Progress Note Date of Service Dec 07, 2016. Interval History Yoselin Bowles is a 51-year-old female who currently lives in [place] with her , has a history of mood disorder NOS, chronic opiate and benzodiazepine use, and was admitted on a 201 voluntary commitment after she presented to the ED, having recently been seen in ED after self inflicted lac to her left arm requiring tendon repair surgery. She submitted a 72 hour notice to withdraw from treatment. Chief Complaint "Mood is getting better". Subjective Patient was seen & assessed interval progress reviewed with Treatment Team. Review of Systems Psych: denies symptoms other than stated above Constitutional: denied Cardiovascular: denied GI: denied Neurologic: denied Remainder of 10 body systems also reviewed and denied other than noted above. Sleep Information Total Hours of Sleep: 4.00 Meal Information Percent of Breakfast Consumed: 50 Percent of Lunch Consumed: 100 Percent of Dinner Consumed: 100 Mental Status Exam During interview pt is: alert and oriented, cooperative Appearance: appropriately dressed, appropriately groomed, other (Left arm in splint/bandage) Eye contact is: good Motor behavior is: steady gait & station, no abnormal motor movements Speech: normal in rate, rhythm & volume Affect: depressed, other (appropriate and reactive) Mood is: other ("getting better") Thought process: goal directed Thought content: reality based without delusions Suicidal thought are: denied Homicidal thoughts are: denied Hallucinations: denies auditory, denies visual Cognition: memory grossly intact, attention grossly intact, language grossly intact Intelligence estimated to be: consistent with level of education Insight: fair Judgement: fair Impression 51 yo female with a history of depression, PTSD, and chronic benzo and oxycodone use who presented with irritability, impulsive outbursts, and recent self harm requiring surgical intervention (cut her arm deep enough to sever a tendon and require surgical repair). Symptoms are consistent with her previous diagnoses of depression and PTSD though differential includes substance induced mood disorder, bipolar II disorder and borderline personality disorder. For the first two days after admission, she was uncooperative with assessments and refused to engage in treatment or take medication for her mood, anxiety, and irritability. She was angry and oppositional with staff, refused to involve her in treatment or allow staff to speak with him (rescinded all ROIs for family and outpatient providers). She refused to even discuss the symptoms and self injurious behavior that led to admission, and was focused only on pain medications. She remains at high risk for self harm if her risk factors are not addressed, so is not yet appropriate for discharge. She had submitted a 72 hour notice, but agreed to rescind it during her family meeting and engage in treatment so that we can address presenting symptoms with a plan including medications and therapy, ensure outpatient follow up, involve or other family to elicit their concerns about her safety at home and involve them in her discharge planning, and ensure she won't have access to large amounts of pills given the risk for OD. Would also need to coordinate care with her outpatient providers, specifically psychiatry and pain management, given concerns about her opiate and benzodiazepine use. She has been more calm and engaged in treatment since 12/05. She is also willing to take medications that have been prescribed for mood and irritability. Plan (1) Depression on admission: The patient is [facility]) on q 15 min checks (behavioral with suicide precautions) for safety. The patient will participate in group, recreational and milieu therapies and will be offered additional individual and family sessions as clinically appropriate. As no current evidence of ky and ongoing low mood/anxiety recommend titration of Prozac to 60 mg, previously failed SNRI. Reviewed that an adjunctive mood stabilizer would be recommended given predominantly irritable presentation and previously recommended by outpatient provider. Reviewed that Seroquel may assist sleep and could be used as prn for anxiety which are patient's main complaints. She declines and remains focussed on Klonopin, angry that med changes are being recommended. LM for Dr. Stein to coordinate care and request consideration for follow up appt in December as scheduling closed to arch support maker. 12/04 - Reviewed outpatient psychiatric records. Patient diagnosed with recurrent depression, severe without psychosis, URIAH, and PTSD. At her last appointment , she was focused on her Klonopin and refused to discuss anything else, wanting a higher dose, and refusing to follow taper instructions. She claimed she never took the opiates prescribed for her knee pain, and said she'd turned the prescription in to her pharmacy. She was angry and accusatory. She had quit going to therapy saying she could not afford it. She canceled her next appointment 11/25, then no showed for her 12/02 appointment. She does have a therapy appointment scheduled with Juanis Carr on 12/27/16 at 2pm. She is supposed to be taking risperidone 0.25mg qhs, prazosin 1-2mg qhs, fluoxetine 40mg qam, propranolol 20mg 1-2 times daily, lamotrigine 100mg qhs, and clonazepam 0.5mg qam and 2mg qhs (tapering by reducing by 0.5mg q 2 months). She admitted on admission that she was not taking any of her medications other than clonazepam. - Continue fluoxetine which was increased to 60mg daily on admission. Continue gabapentin 300mg tid for mood, anxiety and would also cover possible benzo withdrawal (which she refused last night). She is now refusing both of these, and states she will refuse all medications except for Flexeril, Klonopin, and oxycodone. - Suspect [place] II component, with borderline and/or antisocial characteristics. 12/05 - Patient much more calm and cooperative today, willing to take fluoxetine and gabapentin to target mood, anxiety, and irritability, and willing to attend participate in groups and therapy. - Staff to arrange family meeting with for tomorrow. - Will need to coordinate care with outpatient psychiatric provider, Dr. Stein. Has therapy with Juanis Carr scheduled for later this month. 12/07 -Mood gradually improving. She is more willing to accept needing to be in hospital and willing to stay. She wishes to increase frequency of outpatient therapy from once monthly to once weekly for additional support and will need to coordinate care for follow up treatment. (2) PTSD (post-traumatic stress disorder) patient reports mainly intrusive thoughts due to rumination rather than traumatic reexperiencing, occasional nightmares and apparently doesn't desire trials of propranolol or prazosin. (3) roasterman prescription benzodiazepine use reviewed that I would recommend Klonopin taper during hospitalization and confirming pill counts. Klonopin was ordered as prescribed on admission to prevent withdrawal. Will switch to prn dosing which more closely matches home schedule at a lower total daily dose of 2 mg. PDMP queried and report printed for chart. 12/04 - Agree with tapering off clonazepam due to many risks associated with senior living use and concurrent use of opiate pain meds. She is clearly drug seeking, with grossly inappropriate and manipulative/threatening behavior here. Dose has been decreased per outpatient plan by 0.5mg daily. Will need f/u with Dr. Stein, and Dr. Beck left a message with him to coordinate care. Will need to confirm home med pill count as there is concern for abuse (UDS negative for benzos and her bottle filled on 11/27/16 for a 24 day supply was empty on admission); staff to ask to bring in remaining pills. 12/05 - Continue clonazepam 0.5 mg 4 times a day when necessary. Patient has only been getting 2 doses a day. She will need to continue tapering off this medication as an outpatient. - Although the patient's prescription bottle was empty on admission, she claims that she has the remainder of her pills at home. She had just filled the prescription 2 days prior to admission. Staff to ask to bring in medications so that it can be counted for safety prior to discharge. (4) Chronic prescription opiate use PILAR for [place] [facility] PDMP queried monitor for withdrawal if has been using at doses higher than prescribed--would initiate clonidine protocol. No evidence at this time. 12/04 - Reviewed hospital records and PDMP - - filled oxycodone 10mg #120 on from [facility] in [place]. Will need to coordinate care due to concerns for risk of self harm, possible misuse of medications, drug-drug interactions, etc. 12/05 - records have not yet been received from the pain clinic, but patient is reporting poorly controlled pain, and requesting her medication be increased to 4 times a day which she states is her outpatient prescription. Agreed to increase to 4 times a day when necessary. Staff to request to bring in remainder of medications as above. We'll need to coordinate care with outpatient pain clinic tomorrow. (5) Laceration continue antibiotic dual therapy for 10 days as recommended by ED consult orthopedics as missed appt today for surgical f/u taper wrap instead of metal clips 12/04 - Appreciate ortho recs. Continue splint and keep wound clean and dry. She had been manipulating the wound yesterday, and need to continue to monitor her for self inflicted injury and infection. F/u in their outpatient clinic. Septra DS was not started on admission, but was ordered today to complete a 7 day course. 12/06 - Patient questioning when sutures will be removed - will contact Dr. Aldana. Continue bacitracin as needed for dryness/itching around laceration. Continue use of splint. Complete antibiotics. (6) Chronic pain Get records from [facility], as indication for chronic opiates unclear, and risk of abuse/misuse/drug-drug interactions and self injury are high. 12/05 - discussed nonpharmacological techniques for managing chronic pain, including gentle exercise (hydrotherapy as she has a Jacuzzi tub at home, swimming, gentle stretching, yoga, etc.), use of nonnarcotic pain medications, ensuring adequate treatment of mental health issues, working on managing stress , and ensuring good diet and sleep. Discharge / Aftercare Planning Primary Care Physician: Name: Dr Preston Otto Date of Appointment: Dec 22, 2016 Time of Appointment: 2:40pm Psychiatrist: Name: Dr Stein Phone Number: [phone] Date of Appointment: Dec 15, 2016 Time of Appointment: 4:40pm Therapist: Name: Fozia Wahl @ [email or web address] Date of Appointment: Dec 27, 2016 Time of Appointment: 2:00pm Pain Clinic: Name: [facility] Date of Appointment: Dec 28, 2016 Time of Appointment: 2:00pm Visit Code E&M Code: 89958 Inventory Assets Strengths: long standing relationship with an outpatient provider, supportive family Risk Factors Assessment : Yes Health problems: Yes Mental Health Diagnoses: Yes Substance use disorders: Yes (though patient denies, combo of benzo and opiate is concerning) Previous attempt: Yes Family history of suicide: No Previous psychiatric stay: No Protective Factors Assessment : Yes Employed: No Data Vital Signs Last 24 Hrs: Date Time Temp Pulse Resp B/P (MAP) Pulse Ox O2 Delivery O2 Flow Rate FiO2 12/07/16 06:48 36.7 74 16 111/72 70 131/87 Meds Administered Last 24 Hrs: Meds Administered (Past 24Hrs) Medications (Trade) Dose Ordered Sig/Oxana Route Start Time Stop Time Status Last Admin Dose Admin Oxycodone HCl (Roxicodone Immediate Rel Tab) 10 mg QID PRN PO 12/05/16 12:00 12/16/16 20:59 12/07/16 08:04 10 MG Bacitracin (Bacitracin Oint) 1 appln TID PRN EXT 12/05/16 21:15 01/04/17 21:14 12/06/16 12:54 1 APPLN Problem Qualifiers (1) Depression: Depression Type: major depressive disorder Major depression recurrence: recurrent Active/Remission status: currently active Major depression episode severity: severe Psychotic features: without psychotic features Qualified Codes: F33.2 - Major depressive disorder, recurrent severe without psychotic features
[2016-12-07] MEDS: CYCLOBENZAPRINE HCL 5 MG TAB PO PRN ×2 (15:38→23:40)
[2016-12-07] MEDS: BACITRACIN OINT 15 GM TUBE EXT PRN (19:46)
[2016-12-07] MEDS: ATORVASTATIN 10 MG TAB PO SCH (22:31)
[2016-12-07] MEDS: HALOPERIDOL 5 MG TAB PO PRN (23:40)
[2016-12-08] MEDS: OXYCODONE HCL IR 5 MG TAB (IMMEDIATE RELEASE) PO PRN ×3 (01:22→14:08)
[2016-12-08] MEDS: CLONAZEPAM 0.5 MG TAB PO PRN ×2 (01:22→12:04)
[2016-12-08 06:48] VITALS: BP_SYST 109; BP_SYST 126; BP_DIAS 69; BP_DIAS 80; PULSE 59; PULSE 70; TEMP 36.7
[2016-12-08] MEDS: LEVOTHYROXINE 75 MCG TAB PO SCH (08:02)
[2016-12-08] MEDS: CEPHALEXIN MONOHYDRATE 500 MG CAP PO SCH ×3 (08:03→17:00)
[2016-12-08] MEDS: FLUOXETINE HCL 20 MG CAP PO SCH (08:04)
[2016-12-08] MEDS: SULFAMETHOXAZOLE/TRIMETHOPRIM DS 800/160MG TAB PO SCH (08:04)
[2016-12-08] MEDS: GABAPENTIN 300 MG CAP PO SCH ×2 (08:04→14:07)
[2016-12-08] MEDS: MULTIVITAMIN TAB PO SCH (08:04)
--- NOTE | 2016-12-08 11:22 | Discharge Instructions ---
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 Barbiturates NEG Urine Phencyclidine (PCP) Level NEG Ur Amphetamine/Methamphetamine NEG MDMA (Ecstasy) Screen NEG Urine Benzodiazepines Screen NEG Urine Cocaine Metabolite NEG Urine Marijuana (THC) NEG Total Time Total Time Spent (min): Greater than 30 minutes Total Time Included: examination of the patient, discharge planning, medication reconciliation Tobacco Cessation at Discharge Smoking Status: Former Smoker FDA approved Prescription: non-smoker Problem Qualifiers (1) Depression: Depression Type: major depressive disorder Major depression recurrence: recurrent Active/Remission status: currently active Major depression episode severity: severe Psychotic features: without psychotic features Qualified Codes: F33.2 - Major depressive disorder, recurrent severe without psychotic features
[2016-12-08] MEDS ORDERED: CLON1TAB3 PO (11:35)
[2016-12-08] MEDS ORDERED: FLUO20CA20 PO (11:35)
[2016-12-08] MEDS: CYCLOBENZAPRINE HCL 5 MG TAB PO PRN (12:54)
== END 2016-12-08 17:25 | disposition home or self-care (01) | DRG 881 ==
LOC: C.EDB 15:09 → C.MHU 20:31 → ENRESERV 20:40
PROVIDERS: ADMIT Student in an Organized Health Care Education/Training Program; ATTEND Psychiatry & Neurology Child & Adolescent Psychiatry
DX: F32.9 Major depressive disorder, single episode, unspecified (principal); F43.10 Post-traumatic stress disorder, unspecified; G89.29 Other chronic pain; D64.9 Anemia, unspecified; M17.0 Bilateral primary osteoarthritis of knee; M79.7 Fibromyalgia; Z91.5 Personal history of self-harm; Z87.11 Personal history of peptic ulcer disease; Z87.891 Personal history of nicotine dependence; Z79.891 Long term (current) use of opiate analgesic; Z79.899 Other long term (current) drug therapy; Z81.8 Family history of other mental and behavioral disorders

== ENCOUNTER → 2017-02-04 | Outpatient (CLI) | payer OTHER ==
[~2017-02-04] MED LIST changes: +CEPH-571 PO; -CEPH500C2 PO; +FERR1TAB23 PO; +FLUO20CA20 PO; -FLUO40CA8 PO; +GABA-113 PO; +SULF800T23 PO
[2017-02-04 13:35] LABS: ALT/SGPT 33 U/L (12-78); BLOOD UREA NITROGEN 12 mg/dl (7-18); BUN/CREATININE RATIO 11.3 (10-20); CALCIUM 8.6 mg/dl (8.5-10.1); CARBON DIOXIDE 30 mmol/L (21-32); CHLORIDE 101 mmol/L (98-107); GLUCOSE 87 mg/dl (70-99); MAGNESIUM 1.9 mg/dl (1.8-2.4); POTASSIUM 3.4 mmol/L (3.5-5.1); SODIUM 138 mmol/L (136-145)
[2017-02-04 13:38] LABS: ALKALINE PHOSPHATASE 43 U/L (45-117); AST/SGOT 29 U/L (15-37)
[2017-02-04 14:58] LABS: URINE APPEARANCE CLOUDY (CLEAR); URINE BILIRUBIN NEG (NEG); URINE COLOR YELLOW; URINE EPITHELIAL CELL AUTO >30 /lpf (0-5); URINE NITRITE NEG (NEG); URINE SPECIFIC GRAVITY 1.024 (1.000-1.030); UROBILINOGEN NEG (NEG); ZZUR CULT IF INDIC CLEAN CATCH NO
[2017-02-04 15:00] LABS: MANUAL MICROSCOPIC REQUIRED? NO; REVIEW REQ? NO
[2017-02-04 16:01] LABS: URINE PROTIEN/CREAT RATIO 0.1 (0-0.2); URINE TOTAL PROTEIN 10.1 mg/dl (0-11.9)
== END | disposition home or self-care (01) ==
LOC: C.LAB1850 11:52
PROVIDERS: ATTEND Internal Medicine Nephrology
DX: N28.9 Disorder of kidney and ureter, unspecified (principal)